=== PATIENT | female | born 1950 | race Caucasian/White ===

== ENCOUNTER → 2016-11-26 | Outpatient (CLI) | payer MEDICARE, OTHER | LOC: EXRD 13:04 | DX: M54.32 Sciatica, left side (principal); M54.5 Low back pain; M43.16 Spondylolisthesis, lumbar region | CPT/HCPCS: 72100 ==

== ENCOUNTER 2020-12-20 13:12 | Emergency (ER) | payer MEDICARE, OTHER ==
[~2020-12-20 13:12] MED LIST: ALBUTEROL2.5 MG/3 M INH; CLARITIN10 MG PO; FLONASE 0.05% N16 GM; FOLIC ACID 1 MG1 MG PO; GABAPENTIN100 MG PO; GABAPENTIN300 MG PO; IBU600 MG PO; KLONOPIN1 MG PO; LOPRESSOR 25 MG25 MG PO; MEDROL DOSEPAK 24 MG PO; NAMENDA10 MG PO; NEURONTIN 100100 MG PO; OMNICEF 300 MG300 MG PO; PROVENTIL HFA6.7 GM INH; SYMBICORT 16010.2 GM INH; TIZANIDINE HCL2 MG PO; VITAMIN D21250 MCG PO; WELLBUTRIN SR150 M1 PO
[2020-12-20] MEDS ORDERED: PYRIDIUM100 MG PO (13:48)
[2020-12-20] MEDS ORDERED: OMNICEF 300 MG300 MG PO (13:48)
== END 2020-12-20 15:15 | disposition home or self-care (01) ==
LOC: ER1 13:12
DX: N39.0 Urinary tract infection, site not specified (principal); J44.9 Chronic obstructive pulmonary disease, unspecified
CPT/HCPCS: 81001; 96372; 99283; J0696

== ENCOUNTER 2021-01-29 14:59 | Inpatient (IN) | payer MEDICARE, OTHER ==
[~2021-01-29] VITALS: Ht 157.5 cm; Wt 51.3 kg
[~2021-01-29 14:59] MED LIST changes: +PYRIDIUM100 MG PO
[2021-01-29 16:23] LABS: HEMOGLOBIN 13.1 gm/dl (12.3-15.3); RED BLOOD COUNT 4.73 M/UL (4.00-5.10); WHITE BLOOD COUNT 11.4 K/UL (4.5-11.0)
[2021-01-29 16:46] LABS: BUN/CREATININE RATIO 23 (0-10)
[2021-01-30 05:04] LABS: HEMOGLOBIN 12.4 gm/dl (12.3-15.3); RED BLOOD COUNT 4.5 M/UL (4.00-5.10)
[2021-01-30 05:07] LABS: WHITE BLOOD COUNT 7.8 K/UL (4.5-11.0)
[2021-01-30 05:44] LABS: BUN/CREATININE RATIO 29 (0-10)
[2021-01-30] MEDS ORDERED: IPRAT-ALBUT 0.5-3 ML INH (07:43)
[2021-01-30] MEDS ORDERED: MIRALAX17 GM PO (22:42)
[2021-01-30] MEDS ORDERED: STOOL SOFTENER250 MG PO (22:43)
[2021-01-31 02:29] LABS: HEMOGLOBIN 10.6 gm/dl (12.3-15.3); RED BLOOD COUNT 3.88 M/UL (4.00-5.10); WHITE BLOOD COUNT 7.8 K/UL (4.5-11.0)
[2021-01-31 02:48] LABS: BUN/CREATININE RATIO 25 (0-10)
[2021-02-01 02:47] LABS: HEMOGLOBIN 9.9 gm/dl (12.3-15.3); RED BLOOD COUNT 3.73 M/UL (4.00-5.10); WHITE BLOOD COUNT 7.8 K/UL (4.5-11.0)
[2021-02-01 03:14] LABS: BUN/CREATININE RATIO 28 (0-10)
[2021-02-02 02:12] LABS: HEMOGLOBIN 10.9 gm/dl (12.3-15.3); WHITE BLOOD COUNT 7.9 K/UL (4.5-11.0)
[2021-02-02 02:14] LABS: RED BLOOD COUNT 4.2 M/UL (4.00-5.10)
[2021-02-02 02:31] LABS: BUN/CREATININE RATIO 26 (0-10)
[2021-02-03 02:41] LABS: BUN/CREATININE RATIO 33 (0-10)
[2021-02-03 02:50] LABS: HEMOGLOBIN 11.3 gm/dl (12.3-15.3); RED BLOOD COUNT 4.16 M/UL (4.00-5.10); WHITE BLOOD COUNT 9.7 K/UL (4.5-11.0)
[2021-02-03] MEDS ORDERED: MEDROL4 MG PO (09:47)
[2021-02-03] MEDS ORDERED: DOXYCYCLINE HY100 MG PO (13:02)
[2021-02-03] MEDS ORDERED: SPIRIVA HANDIH18 MCG INH (13:03)
== END 2021-02-03 14:49 | disposition home or self-care (01) | DRG 189 ==
LOC: ER1 14:59 → PROG CARE 18:12 → CDU 18:12 → PROG CARE 20:00
PROVIDERS: Emergency Medicine; Physician Assistant Medical; ADMIT Internal Medicine
PROC: 5A09357 Assistance with Respiratory Ventilation, Less than 24 Consecutive Hours, Continuous Positive Airway Pressure (ICD-10-PCS; principal; 2021-01-29)
DX: J96.01 Acute respiratory failure with hypoxia (principal); J44.1 Chronic obstructive pulmonary disease with (acute) exacerbation; J44.0 Chronic obstructive pulmonary disease with (acute) lower respiratory infection; E87.1 Hypo-osmolality and hyponatremia; Z20.822 Contact with and (suspected) exposure to COVID-19; F03.90 Unspecified dementia, unspecified severity, without behavioral disturbance, psychotic disturbance, mood disturbance, and anxiety; J96.02 Acute respiratory failure with hypercapnia; R73.9 Hyperglycemia, unspecified; M19.90 Unspecified osteoarthritis, unspecified site; E86.0 Dehydration; J20.9 Acute bronchitis, unspecified; M81.0 Age-related osteoporosis without current pathological fracture; R33.9 Retention of urine, unspecified; F41.9 Anxiety disorder, unspecified; Z99.81 Dependence on supplemental oxygen; Z87.891 Personal history of nicotine dependence; Z83.3 Family history of diabetes mellitus; Z80.9 Family history of malignant neoplasm, unspecified
CPT/HCPCS: 36415; 36600; 70450; 71045; 80048; 80053; 81001; 82550; 82553; 82803; 83036; 83605; 83690; 83735; 83874; 84484; 85025; 85027; 85610; 85730; 86140; 87040; 87070; 87205; 93005; 94640; 94660; 94664; 94760; 96374; 96375; 97110-GP-CQ; 97161; 97166; 97530-GP-CQ; 99285; J0696; J1650; J2930; J7030; U0002

== ENCOUNTER → 2021-03-11 | Outpatient (CLI) | payer MEDICARE, OTHER ==
[~2021-03-11] MED LIST changes: +DOXYCYCLINE HY100 MG PO; +IPRAT-ALBUT 0.5-3 ML INH; +MEDROL4 MG PO; +MIRALAX17 GM PO; +SPIRIVA HANDIH18 MCG INH; +STOOL SOFTENER250 MG PO
== END ==
LOC: EXRD 15:20
DX: J44.9 Chronic obstructive pulmonary disease, unspecified (principal)
CPT/HCPCS: 94060; 94729

== ENCOUNTER 2021-03-14 19:33 | Emergency (ER) | payer MEDICARE, OTHER ==
[2021-03-14 20:59] LABS: HEMOGLOBIN 12.5 gm/dl (12.3-15.3); RED BLOOD COUNT 4.56 M/UL (4.00-5.10); WHITE BLOOD COUNT 11.4 K/UL (4.5-11.0)
[2021-03-14 21:21] LABS: BUN/CREATININE RATIO 10 (0-10)
== END 2021-03-15 01:43 | disposition home or self-care (01) ==
LOC: ER1 19:33
PROVIDERS: Emergency Medicine
DX: F03.91 Unspecified dementia, unspecified severity, with behavioral disturbance (principal); J43.9 Emphysema, unspecified; M06.9 Rheumatoid arthritis, unspecified; M19.90 Unspecified osteoarthritis, unspecified site; Z20.822 Contact with and (suspected) exposure to COVID-19
CPT/HCPCS: 0240U; 70450; 71045; 73502; 80053; 81001; 82550; 82553; 83605; 84484; 85025; 87040; 87086; 93005; 94640; 94664; 96374; 96375; 99284; J0696; J2930; Q9967

== ENCOUNTER 2021-07-21 16:03 | Inpatient (IN) | payer MEDICARE, OTHER ==
[~2021-07-21] VITALS: Ht 157.5 cm; Wt 52.0 kg
[~2021-07-21 16:03] MED LIST changes: -CLARITIN10 MG PO; -FOLIC ACID 1 MG1 MG PO; -IPRAT-ALBUT 0.5-3 ML INH; +IPRAT-ALBUT 0.5-3 ML NEB; -NAMENDA10 MG PO; -NEURONTIN 100100 MG PO; -PROVENTIL HFA6.7 GM INH; -SYMBICORT 16010.2 GM INH; -VITAMIN D21250 MCG PO; -WELLBUTRIN SR150 M1 PO
[2021-07-21 16:33] LABS: HEMOGLOBIN 11.3 gm/dl (12.3-15.3); RED BLOOD COUNT 4.26 M/UL (4.00-5.10); WHITE BLOOD COUNT 8.7 K/UL (4.5-11.0)
[2021-07-21 17:00] LABS: BUN/CREATININE RATIO 18 (0-10)
[2021-07-21] MEDS ORDERED: IBU600 MG PO (18:30)
[2021-07-21] MEDS ORDERED: CLARITIN10 MG PO (18:33)
[2021-07-21] MEDS ORDERED: ALBUTEROL2.5 MG/3 M NEB (18:34)
[2021-07-21] MEDS ORDERED: PROVENTIL HFA6.7 GM INH (18:35)
[2021-07-21] MEDS ORDERED: FOLIC ACID 1 MG1 MG PO (18:36)
[2021-07-21] MEDS ORDERED: NAMENDA10 MG PO (18:36)
[2021-07-21] MEDS ORDERED: SYMBICORT 16010.2 GM INH (18:36)
[2021-07-21] MEDS ORDERED: WELLBUTRIN SR150 M1 PO (18:37)
[2021-07-21] MEDS ORDERED: NEURONTIN 100100 MG PO (22:34)
[2021-07-21] MEDS ORDERED: VITAMIN D21250 MCG PO (22:40)
[2021-07-22 02:30] LABS: HEMOGLOBIN 11.7 gm/dl (12.3-15.3); RED BLOOD COUNT 4.33 M/UL (4.00-5.10)
[2021-07-22 02:33] LABS: WHITE BLOOD COUNT 4.1 K/UL (4.5-11.0)
[2021-07-22 02:50] LABS: BUN/CREATININE RATIO 27 (0-10)
[2021-07-23 04:27] LABS: WHITE BLOOD COUNT 4.1 K/UL (4.5-11.0)
[2021-07-23 04:30] LABS: HEMOGLOBIN 9.7 gm/dl (12.3-15.3); RED BLOOD COUNT 3.63 M/UL (4.00-5.10)
[2021-07-23 04:47] LABS: BUN/CREATININE RATIO 33 (0-10)
[2021-07-23] MEDS ORDERED: [UNRECOGNIZED DRUG - SUPPLY] (10:15)
[2021-07-23] MEDS ORDERED: MEDROL4 MG PO (10:15)
[2021-07-24 04:24] LABS: HEMOGLOBIN 10.3 gm/dl (12.3-15.3); RED BLOOD COUNT 3.88 M/UL (4.00-5.10)
[2021-07-24 04:41] LABS: BUN/CREATININE RATIO 26 (0-10)
[2021-07-24] MEDS ORDERED: LEVOFLOXACIN500 MG PO (08:00)
== END 2021-07-24 13:44 | disposition home health service (06) | DRG 871 ==
LOC: ER1 16:03 → PROG CARE 18:09 → CDU 18:09 → PROG CARE 19:49
PROVIDERS: Family Medicine; Internal Medicine; ADMIT Internal Medicine
PROC: 5A09457 Assistance with Respiratory Ventilation, 24-96 Consecutive Hours, Continuous Positive Airway Pressure (ICD-10-PCS; principal; 2021-07-21)
DX: A41.9 Sepsis, unspecified organism (principal); J18.9 Pneumonia, unspecified organism; Z20.822 Contact with and (suspected) exposure to COVID-19; G93.41 Metabolic encephalopathy; J96.21 Acute and chronic respiratory failure with hypoxia; J96.22 Acute and chronic respiratory failure with hypercapnia; R65.20 Severe sepsis without septic shock; I10 Essential (primary) hypertension; F03.90 Unspecified dementia, unspecified severity, without behavioral disturbance, psychotic disturbance, mood disturbance, and anxiety; J43.9 Emphysema, unspecified; M06.9 Rheumatoid arthritis, unspecified; F17.210 Nicotine dependence, cigarettes, uncomplicated; F41.9 Anxiety disorder, unspecified; Z83.3 Family history of diabetes mellitus; Z99.81 Dependence on supplemental oxygen; Z80.9 Family history of malignant neoplasm, unspecified
CPT/HCPCS: 36415; 36600; 71045; 80048; 80053; 82550; 82553; 82803; 82962; 83605; 83874; 83880; 84484; 85025; 85027; 85610; 86140; 87040; 87070; 87077; 87186; 87205; 93005; 94640; 94660; 94664; 94760; 96374; 97110-GP-CQ; 97116-GP-CQ; 97162; 97166; 99285; J0692; J1650; J2920; J2930; U0002

== ENCOUNTER 2021-09-15 19:35 | Inpatient (IN) | payer MEDICARE, OTHER ==
[~2021-09-15] VITALS: Ht 152.4 cm; Wt 52.6 kg
[~2021-09-15 19:35] MED LIST changes: +ALBUTEROL2.5 MG/3 M NEB; +CLARITIN10 MG PO; +FOLIC ACID 1 MG1 MG PO; +LEVOFLOXACIN500 MG PO; +NAMENDA10 MG PO; +NEURONTIN 100100 MG PO; +PROVENTIL HFA6.7 GM INH; +SYMBICORT 16010.2 GM INH; +VITAMIN D21250 MCG PO; +WELLBUTRIN SR150 M1 PO; +[UNRECOGNIZED DRUG - SUPPLY]
[2021-09-15 19:53] LABS: RED BLOOD COUNT 4.39 M/UL (4.00-5.10); WHITE BLOOD COUNT 14.5 K/UL (4.5-11.0)
[2021-09-15 20:18] LABS: BUN/CREATININE RATIO 21 (0-10)
[2021-09-16 07:20] LABS: HEMOGLOBIN 12.2 gm/dl (12.3-15.3); RED BLOOD COUNT 4.58 M/UL (4.00-5.10); WHITE BLOOD COUNT 13.5 K/UL (4.5-11.0)
[2021-09-16 07:40] LABS: BUN/CREATININE RATIO 38 (0-10)
[2021-09-17 03:47] LABS: RED BLOOD COUNT 4.83 M/UL (4.00-5.10)
[2021-09-17 04:33] LABS: WHITE BLOOD COUNT 33.1 K/UL (4.5-11.0)
[2021-09-18 05:50] LABS: HEMOGLOBIN 12.2 gm/dl (12.3-15.3); RED BLOOD COUNT 4.65 M/UL (4.00-5.10)
[2021-09-18 05:54] LABS: WHITE BLOOD COUNT 13.7 K/UL (4.5-11.0)
[2021-09-19 04:48] LABS: HEMOGLOBIN 11.9 gm/dl (12.3-15.3); RED BLOOD COUNT 4.5 M/UL (4.00-5.10)
[2021-09-20 08:03] LABS: RED BLOOD COUNT 4.15 M/UL (4.00-5.10)
[2021-09-20 08:05] LABS: WHITE BLOOD COUNT 6.6 K/UL (4.5-11.0)
[2021-09-21 08:02] LABS: HEMOGLOBIN 10.3 gm/dl (12.3-15.3); RED BLOOD COUNT 3.88 M/UL (4.00-5.10)
[2021-09-21 08:08] LABS: WHITE BLOOD COUNT 8.3 K/UL (4.5-11.0)
[2021-09-21 09:01] LABS: BUN/CREATININE RATIO 64 (0-10)
[2021-09-22 06:41] LABS: HEMOGLOBIN 10.2 gm/dl (12.3-15.3); RED BLOOD COUNT 3.83 M/UL (4.00-5.10); WHITE BLOOD COUNT 9.4 K/UL (4.5-11.0)
[2021-09-22 07:05] LABS: BUN/CREATININE RATIO 56 (0-10)
[2021-09-23 06:53] LABS: HEMOGLOBIN 11.2 gm/dl (12.3-15.3); WHITE BLOOD COUNT 9.6 K/UL (4.5-11.0)
[2021-09-23 07:15] LABS: RED BLOOD COUNT 4.22 M/UL (4.00-5.10)
[2021-09-23 07:26] LABS: BUN/CREATININE RATIO 64 (0-10)
[2021-09-24 05:04] LABS: HEMOGLOBIN 11.5 gm/dl (12.3-15.3); RED BLOOD COUNT 4.34 M/UL (4.00-5.10)
[2021-09-24 05:11] LABS: WHITE BLOOD COUNT 13.5 K/UL (4.5-11.0)
[2021-09-24 05:40] LABS: BUN/CREATININE RATIO 57 (0-10)
[2021-09-24] MEDS ORDERED: MEDROL DOSEPAK 24 MG PO (13:22)
--- NOTE | 2021-09-24 17:09 | NUR ---
REPORT CALLED TO ED WITH [facility].
== END 2021-09-24 17:28 | DRG 871 ==
LOC: ER1 19:35 → MED SURG 4 20:50 → CDU 20:50 → MED SURG 4 09-16 00:26
PROVIDERS: Family Medicine; Internal Medicine; ADMIT Internal Medicine
PROC: 5A09457 Assistance with Respiratory Ventilation, 24-96 Consecutive Hours, Continuous Positive Airway Pressure (ICD-10-PCS; principal; 2021-09-15)
DX: A41.51 Sepsis due to Escherichia coli [E. coli] (principal); J96.21 Acute and chronic respiratory failure with hypoxia; J96.22 Acute and chronic respiratory failure with hypercapnia; Z20.822 Contact with and (suspected) exposure to COVID-19; Z51.5 Encounter for palliative care; Z66 Do not resuscitate; J18.9 Pneumonia, unspecified organism; G93.41 Metabolic encephalopathy; E87.2 Acidosis; N17.9 Acute kidney failure, unspecified; N30.00 Acute cystitis without hematuria; E87.0 Hyperosmolality and hypernatremia; E86.0 Dehydration; R65.20 Severe sepsis without septic shock; J43.9 Emphysema, unspecified; M06.9 Rheumatoid arthritis, unspecified; F41.9 Anxiety disorder, unspecified; E55.9 Vitamin D deficiency, unspecified; E87.5 Hyperkalemia; F03.90 Unspecified dementia, unspecified severity, without behavioral disturbance, psychotic disturbance, mood disturbance, and anxiety; G89.4 Chronic pain syndrome; Z99.81 Dependence on supplemental oxygen; Z82.49 Family history of ischemic heart disease and other diseases of the circulatory system; Z82.3 Family history of stroke; Z87.891 Personal history of nicotine dependence; Z80.9 Family history of malignant neoplasm, unspecified; Z83.3 Family history of diabetes mellitus
CPT/HCPCS: 0240U; 36415; 36600; 51702; 71045; 80048; 80053; 80202; 81001; 82803; 82962; 83605; 83735; 84100; 84132; 85025; 85027; 87040; 87077; 87081; 87086; 87186; 90686; 92526; 92610; 93005; 94640; 94645; 94660; 94760; 96374; 97110-GP-CQ; 97162; 97530; 99284; G0008; J1335; J1644; J1650; J2020; J2185; J2920; J3370; J7070